=== PATIENT | female | born 1960 | race Caucasian/White ===

== ENCOUNTER → 2023-05-31 07:35 | Outpatient (REF) | payer BC, SELFPAY | LOC: HWWDC 07:35 | PROVIDERS: ATTENDING PHYSICIAN Family Medicine; REFERRING PHYSICIAN Advanced Practice Midwife | DX: Z12.31 Encounter for screening mammogram for malignant neoplasm of breast (principal) | CPT/HCPCS: 77063; 77067 ==

== ENCOUNTER → 2024-07-31 08:22 | Outpatient (REF) | payer BC, SELFPAY | LOC: WDC 08:22 | PROVIDERS: ATTENDING PHYSICIAN Advanced Practice Midwife; FAMILY PHYSICIAN Family Medicine | DX: Z12.31 Encounter for screening mammogram for malignant neoplasm of breast (principal) | CPT/HCPCS: 77063; 77067 ==

== ENCOUNTER 2024-09-01 11:13 | Outpatient (RCR) | payer BC, SELFPAY | END 2024-09-01 23:59 | disposition home or self-care (01) | LOC: RPT 11:13 | PROVIDERS: ATTENDING PHYSICIAN Advanced Practice Midwife; FAMILY PHYSICIAN Family Medicine | DX: M62.89 Other specified disorders of muscle (principal); N81.89 Other female genital prolapse; R39.14 Feeling of incomplete bladder emptying; Z73.6 Limitation of activities due to disability | CPT/HCPCS: 97014; 97110; 97112; 97140; 97162; 97530 ==

== ENCOUNTER 2024-09-21 10:04 | Outpatient (RCR) | payer BC, SELFPAY | END 2024-09-21 15:24 | disposition home or self-care (01) | LOC: RPT 10:04 | PROVIDERS: ATTENDING PHYSICIAN Advanced Practice Midwife; FAMILY PHYSICIAN Family Medicine | DX: M62.89 Other specified disorders of muscle (principal); N81.89 Other female genital prolapse; R39.14 Feeling of incomplete bladder emptying; Z73.6 Limitation of activities due to disability | CPT/HCPCS: 97110; 97112; 97140; 97530 ==

== ENCOUNTER → 2024-12-18 07:30 | Outpatient (REF) | payer BC, SELFPAY | LOC: HWRAD 07:30 | PROVIDERS: ATTENDING PHYSICIAN Nurse Practitioner Adult Health | DX: M25.561 Pain in right knee (principal) | CPT/HCPCS: 73564; 76882 ==